=== PATIENT | female | born 1965 | race Caucasian/White ===

== ENCOUNTER 2021-01-28 10:20 | Outpatient (REF) | payer BC, SELFPAY ==
--- NOTE | ~2021-01-28 | MR_ITS ---
EXAMINATION: MR BRAIN WITHOUT CONTRAST CLINICAL INFORMATION: Assess brain volume. COMPARISON: None available. TECHNIQUE: Multiplanar, multisequence MR imaging was performed through the brain without the use of intravenous gadolinium. Additional high-resolution anatomic imaging was performed through the brain and images were submitted for post processing including auto-segmentation and volumetric analysis. FINDINGS: There is no hydrocephalus, extra-axial surface collection, or herniation. There is mild chronic microangiopathy. The major flow voids at the skull base are preserved. There is no acute infarct on diffusion-weighted imaging. There is no intracranial hemorrhage on the gradient recalled echo acquisition. The midline structures are normal. The cerebellar tonsils are normally positioned. The cerebellum and brainstem are normal. The craniocervical junction is normal. Osseous marrow signal intensity is homogenous. 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 Baseline [employer] volumetric assessment of the hippocampi was subsequently performed. Quantitative hippocampal volumes are estimated at an age-adjusted normative percentile of 46%. Lateral ventricular size is estimated at a normative percentile rank of 74%, and the inferior lateral ventricles are estimated at 39%. MR/MR head/brain wo con IMPRESSION: - No acute intracranial findings. - Mild chronic microangiopathy. - Baseline volumetric measurements do not support a diagnosis of primary Alzheimer's dementia at the present time. 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
== END 2021-01-28 10:21 | disposition home or self-care (01) ==
LOC: HO.MRI 10:20
PROVIDERS: Visit Provider Psychiatry & Neurology Neurology
DX: R25.1 Tremor, unspecified (principal)
CPT/HCPCS: 70551

== ENCOUNTER 2021-02-11 09:18 | Outpatient (REF) | payer BC, SELFPAY ==
[2021-02-11 11:46] LABS: Erythrocyte Sedimentation Rate 6 MM/HR (0-20)
[2021-02-12 06:21] LABS: Lyme Abs Screen <0.90 index
[2021-02-12 09:26] LABS: Syphilis Screen Nonreactive (Nonreactive)
[2021-02-12 13:37] LABS: Anti Nuclear Antibody Screen NEGATIVE (NEGATIVE)
[2021-02-16 15:12] LABS: Cardiolipin IgG Ab <14 GPL; Cardiolipin IgM Ab <12 MPL
== END 2021-02-11 09:19 | disposition home or self-care (01) ==
LOC: HO.LAB 09:18
PROVIDERS: PCP Internal Medicine; Visit Provider Psychiatry & Neurology Neurology
DX: G93.49 Other encephalopathy (principal)
CPT/HCPCS: 36415; 85652; 86038; 86039; 86147; 86617; 86618; 86780

== ENCOUNTER 2021-02-18 09:20 | Day surgery (SDC) | payer BC, SELFPAY ==
--- NOTE | ~2021-02-18 | FL_ITS ---
EXAMINATION: XR LUMBAR PUNCTURE CLINICAL INFORMATION: White matter changes and tremors. COMPARISON: None TECHNIQUE: Following explaining fluoroscopy-guided lumbar puncture procedure, benefits and risk, a written consent was obtained. Patient was placed prone on fluoroscopy table and low back area was cleaned and draped in usual sterile manner. 1% lidocaine was injected in left para midline region overlying the L4-L5 disc level. A 22-gauge needle was then inserted from the skin intrathecally at the L4-L5 disc level. After removing the stylet and observing significant, patient was quickly placed in left lateral thickness decubitus view and opening CSF pressure was obtained. Subsequently CSF fluid was collected in 4 test tubes. The stylet was reintroduced and needle withdrawn. Complete hemostasis achieved at puncture site. Sterile dressing applied postprocedure. Patient tolerated procedure extremely well. FINDINGS: On the images obtained under fluoroscopy there is maintained vertebral heights, alignment and disc heights. The opening CSF pressure measures 15cm of water. Approximately 10.5 mL of CSF was collected in 4 test tubes and sent to lab for further analysis as per referring physician's orders. FLUOROSCOPY TIME: 0.4 minutes DOSE AREA PRODUCT: 3.206 uGy-m2 (microgray-meter squared) FL/FL guided lumbar puncture LP IMPRESSION: Successful fluoroscopy-guided lumbar puncture performed. There were no immediate complications
[2021-02-18 09:31] VITALS: BP 126/62; PULSE 65; RESP 18; TEMP 36.1; O2SAT 97; BMI 23.3
[2021-02-18 10:25] LABS: MANUAL DIFF FLAG NO
[2021-02-18 10:30] LABS: Basophils Percent Auto 0.5 % (0-2); Eosinophils Absolute Auto 0.2 X10*3/uL (0.0-0.4); Eosinophils Percent Auto 2.4 % (0-4); Hematocrit 37.2 % (37-47); Hemoglobin 12.4 g/dl (12.0-16.0); Imm Gran Abs Auto 0.02 X10*3/uL (0.00-0.03); Imm Gran Pct Auto 0.3 % (0.0-0.4); Lymphocytes Absolute Auto 1.2 X10*3/uL (1.2-4.9); Lymphocytes Percent Auto 19.3 % (20-40); Mean Corpuscular HGB Conc 33.3 g/dl (31.0-35.0); Mean Corpuscular Hemoglobin 29.5 pg (27.0-33.0); Mean Corpuscular Volume 88.4 fL (80-98); Mean Platelet Volume 9.3 fL (9.4-12.3); Monocytes Absolute Auto 0.7 X10*3/uL (0.1-1.2); Monocytes Percent Auto 10.7 % (2-11); Neutrophils Absolute Auto 4.3 X10*3/uL (2.0-8.3); Neutrophils Percent Auto 66.8 % (45-73); Platelet Count 233 X10*3/uL (160-400); Red Blood Count 4.21 X10*6/uL (4.20-5.50); Red Cell Distribution Width 13.2 % (11.0-16.0); White Blood Count 6.4 X10*3/uL (4.8-10.8)
[2021-02-18 10:37] LABS: Prothrombin Time 11.3 SEC (10.8-13.0)
[2021-02-18 10:39] LABS: Partial Thromboplastin Time 31.4 SEC (24.1-38.0)
[2021-02-18 12:02] VITALS: BP 117/45; PULSE 58; RESP 17; TEMP 36.6; O2SAT 100
[2021-02-18 12:28] VITALS: BP 127/72; PULSE 60; RESP 16; O2SAT 98
[2021-02-18 12:58] LABS: CSF Appearance Clear, Colorless; CSF Tube # 3
[2021-02-18 13:00] VITALS: BP 120/58; PULSE 69; RESP 16; O2SAT 99
[2021-02-18 13:05] LABS: Glucose CSF 53 mg/dL; Total Protein CSF 35.1 mg/dL (15-45)
[2021-02-18 13:30] VITALS: BP 124/67; PULSE 69; RESP 16; O2SAT 99
[2021-02-18 13:59] VITALS: BP 125/57; PULSE 72; RESP 16; TEMP 36.6; O2SAT 98
[2021-02-18 14:05] LABS: Appearance CSF CLEAR; CSF Tube # 4; Color CSF COLORLESS; White Blood Cell CSF 0 MM*3
[2021-02-18 14:06] LABS: Red Blood Cell CSF 7 MM*3
[2021-02-18 14:40] LABS: Oligoclonal Serum Yes
[2021-02-21 18:12] LABS: Albumin 3.5 g/dL (3.5-5.2); Albumin, CSF 25.3 mg/dL (8.0-42.0); IgG 624 mg/dL (600-1640); IgG Synthesis Rate -2.8 mg/24 h (-9.9-3.3); IgG, CSF 1.9 mg/dL (0.8-7.7)
== END 2021-02-18 14:05 | disposition home or self-care (01) ==
PROVIDERS: Psychiatry & Neurology Neurology; PCP Internal Medicine; Visit Provider Radiology Diagnostic Radiology
PROC: 009U3ZZ Drainage of Spinal Canal, Percutaneous Approach (ICD-10-PCS; CPT 62270; principal; 2021-02-18 11:00)
DX: G93.49 Other encephalopathy (principal); R25.1 Tremor, unspecified; F32.9 Major depressive disorder, single episode, unspecified; H35.30 Unspecified macular degeneration; M19.90 Unspecified osteoarthritis, unspecified site; Z79.899 Other long term (current) drug therapy
CPT/HCPCS: 36415; 62328; 82042; 82945; 83916; 84157; 85025; 85610; 85730; 87015; 87070; 87205; 89051